=== PATIENT | male | born 1990 | race Caucasian/White ===

== ENCOUNTER 2019-10-23 00:07 | Emergency (ER) | payer OTHER ==
[~2019-10-23] VITALS: Ht 175.3 cm; Wt 99.8 kg
[2019-10-23] MEDS ORDERED: HYDROCODON-ACE1 EAC7 PO (00:49)
[2019-10-23] MEDS ORDERED: ZOFRAN ODT4 MG PO (00:49)
[2019-10-23] MEDS ORDERED: KEFLEX500 M1 PO (00:49)
[2019-10-23 01:06] VITALS: BP 142/80
== END 2019-10-23 01:07 | disposition home or self-care (01) ==
LOC: M.ERS 00:07
DX: S60.221A Contusion of right hand, initial encounter (principal); Z90.49 Acquired absence of other specified parts of digestive tract; V86.59XA Driver of other special all-terrain or other off-road motor vehicle injured in nontraffic accident, initial encounter; Y93.89 Activity, other specified; Y92.89 Other specified places as the place of occurrence of the external cause; Y99.8 Other external cause status